=== PATIENT | female | born 1940 | race African-American/Black ===

== ENCOUNTER 2019-10-24 09:32 | Emergency (ER) | payer MEDICARE, OTHER ==
[~2019-10-24] VITALS: Ht 157.5 cm; Wt 84.4 kg
--- NOTE | 2019-10-24 10:02 | PHYS DOC ---
Past Medical History Past Medical History: Hypertension, Additional Disease Additional Past Medical Histor: GOUT Past Surgical History: No Surgical History Alcohol Use: None Drug Use: None Adult General Chief Complaint Chief Complaint: ANKLE PROBLEM HPI HPI Patient is a 79 year old female who presents with left ankle, foot, lower leg pain since Thursday. The patient states that she was twisting and she lost her balance and twisted the leg. She states that her pain level is 10 out of 10 in severity and sharp. She took tramadol this morning. Review of Systems Review of Systems Constitutional: Denies fever or chills [] Eyes: Denies change in visual acuity, redness, or eye pain [] HENT: Denies nasal congestion or sore throat [] : Denies dysuria or hematuria [] Musculoskeletal: Reports left lower leg pain.] Integument: Denies rash or skin lesions [] Neurologic: Denies headache, focal weakness or sensory changes [] Endocrine: Denies polyuria or polydipsia [] Complete systems were reviewed and found to be within normal limits, except as documented in this note. Allergies Allergies Allergies Coded Allergies Type Severity Reaction Last Updated Verified No Known Drug Allergies 10/24/13 No Physical Exam Physical Exam Constitutional: Well developed, well nourished, no acute distress, non-toxic appearance. [] HENT: Normocephalic, atraumatic, bilateral external ears normal, oropharynx moist, no oral exudates, nose normal. [] Eyes: PERRLA, EOMI, conjunctiva normal, no discharge. [] Neck: Normal range of motion, no tenderness, supple Skin: Warm, dry, no erythema, no rash. [] Extremities: Tenderness to L lower leg, ankle, and foot. Tenderness diffusely to palpation, mild edema, neurovascular intact. Neurologic: Alert and oriented X 3, normal motor function, normal sensory function, no focal deficits noted. [] Psychologic: Affect normal, judgement normal, mood normal. [] Current Patient Data Vital Signs Vital Signs Date Time Temp Pulse Resp B/P (MAP) Pulse Ox O2 Delivery O2 Flow Rate FiO2 10/24/19 10:07 98.7 81 16 159/67 (97) 97 Room Air 98.7 EKG EKG [] Radiology/Procedures Radiology/Procedures [][facility] [address] [place] [address] IMAGING REPORT Signed PATIENT: GERMAIN RAMIRES AACCOUNT: [id number] : 1940 LOCATION: ER AGE: 79 SEX: F EXAM STATUS: REG ER ORD. PHYSICIAN: VAUGHN WILLS APRN REASON: tenderness lateral ankle from fall on Thursday PROCEDURE: ANKLE LEFT 3V TIBIA FIBULA LEFT, ANKLE LEFT 3V, FOOT LEFT 3V History: Lateral ankle pain. Trauma. Technique: 2 views left tib-fib. 3 views left ankle and 3 views left foot. Comparison: None. Findings: Advanced medial compartment knee DJD. Lateral and patellofemoral compartment DJD. Probable posterior calcified intra-articular loose body. Lateral ankle soft tissue swelling. Symmetric ankle mortise. No fracture. Plantar calcaneal spur. Dorsal calcaneal enthesophyte. Normal alignment of the foot. No fracture. Impression: 1. No acute osseous abnormality. 2. Lateral ankle soft tissue swelling. 3. Left knee DJD Electronically signed by: Giovanni Zhang DO (10/24/2019 10:35 AM) [id number] Course & Med Decision Making Course & Med Decision Making Pertinent Labs and Imaging studies reviewed. (See chart for details) Will get x-ray. Xray is negative. Will have nursing place teja bandage and give crutches. Dragon Disclaimer Dragon Disclaimer This electronic medical record was generated, in whole or in part, using a voice recognition dictation system. Departure Departure Impression: Primary Impression: Ankle pain, left Disposition: HOME, SELF-CARE Condition: STABLE Referrals: UNKNOWN PCP NAME (PCP) Patient Instructions: Elastic Bandage and RICE Additional Instructions: Thank you for visiting [facility]. We appreciate you trusting us with your care. If any additional problems come up don't hesitate to return to visit us. Please follow up with your primary care provider so they can plan additional care if needed and know about the problem that you had. If symptoms worsen come back to the Emergency Department. Any concerning symptoms that start such as chest pain, shortness of air, weakness or numbness on one side of the body, running high fevers or any other concerning symptoms return to the ER. Please use RICE. Problem Qualifiers Primary Impression: Ankle pain, left Chronicity: acute Qualified Codes: M25.572 - Pain in left ankle and joints of left foot VAUGHN WILLS APRN Oct 24, 2019 10:02
[2019-10-24 10:07] VITALS: BP 159/67
--- NOTE | 2019-10-24 10:38 | RAD ---
TIBIA FIBULA LEFT, ANKLE LEFT 3V, FOOT LEFT 3V History: Lateral ankle pain. Trauma. Technique: 2 views left tib-fib. 3 views left ankle and 3 views left foot. Comparison: None. Findings: Advanced medial compartment knee DJD. Lateral and patellofemoral compartment DJD. Probable posterior calcified intra-articular loose body. Lateral ankle soft tissue swelling. Symmetric ankle mortise. No fracture. Plantar calcaneal spur. Dorsal calcaneal enthesophyte. Normal alignment of the foot. No fracture. Impression: 1. No acute osseous abnormality. 2. Lateral ankle soft tissue swelling. 3. Left knee DJD Electronically signed by: Giovanni Zhang DO (10/24/2019 10:35 AM) [id number]
== END 2019-10-24 11:23 | disposition home or self-care (01) ==
LOC: ER 09:32
DX: M25.572 Pain in left ankle and joints of left foot (principal); M79.662 Pain in left lower leg; I10 Essential (primary) hypertension; M10.9 Gout, unspecified
CPT/HCPCS: 73590; 73610; 73630; 99284